=== PATIENT | female | born 1985 | race Caucasian/White ===

== ENCOUNTER 2022-10-04 19:20 | Emergency (ER) | payer OTHER ==
[2022-10-04 19:31] VITALS: BP 115/74; PULSE 82; RESP 18; TEMP 99.1; BMI 28.3
[2022-10-04] MEDS ORDERED: IBUPROFEN 600 MG TABLET (FP) PO ONE (22:18)
== END 2022-10-04 23:18 | disposition home or self-care (01) ==
LOC: JER 19:20
DX: M79.605 Pain in left leg (principal); M79.604 Pain in right leg
CPT/HCPCS: 71046-TC-FY; 93005; 93010; 93970-TC; 99285-25